=== PATIENT | female | born 1965 | race Caucasian/White ===

== ENCOUNTER 2017-03-14 09:08 | Day surgery (SDC) | payer BC ==
--- NOTE | 2017-03-14 08:13 | HP ---
DATE OF SURGERY: 03/14/2017 HISTORY OF PRESENT ILLNESS: This is a 52 year-old female with no change in bowel movements. Family history negative for colon cancer. She is in need of screening colonoscopy. PAST MEDICAL HISTORY: Hypertension, hypercholesterolemia. PAST SURGICAL HISTORY: Tonsillectomy. MEDICATIONS: Bystolic, lisinopril, hydrochlorothiazide, rosuvastatin, calcium, omeprazole. ALLERGIES: NKDA. FAMILY HISTORY: Diabetes, heart disease. SOCIAL HISTORY: One pack per day smoker, denies alcohol abuse. REVIEW OF SYSTEMS: Twelve systems reviewed per admission assessment. No chest pain or palpitations other systems negative or noncontributory as above and per preadmission questionnaire. PHYSICAL EXAMINATION: GENERAL: No acute distress. HEENT: Sclerae nonicteric. NECK: No JVD. CHEST: Equal excursion, nonlabored breathing. CVS: Regular rate and rhythm. ABDOMEN: Soft. No peritoneal signs. EXTREMITIES: No significant edema. NEURO: Alert, oriented, moving extremities symmetrically. No gross motor deficits noted. RECTAL: Deferred timed to endoscopy exam. IMPRESSION: Need for screening colonoscopy. I feel the patient is a candidate. Risks and benefits explained in detail including but not limited to bleeding or infection, risk of bowel injury or perforation possibly requiring open procedure, ongoing morbidity, small risk of missed or nondiagnosis or incomplete exam possibly requiring barium enema, other studies or procedures, general risk of anesthesia or sedation, risk of bowel prep, postoperative risk of nausea or cramping but not limited to. She understands and agrees to the planned procedure and will proceed with outpatient screening colonoscopy.
[2017-03-14] MEDS ORDERED: DIPRIVAN 200 MG/20 ML IV ONE (09:09)
[2017-03-14] MEDS ORDERED: Versed 2 MG/2 ML Injection IV ONE (09:09)
[2017-03-14] MEDS ORDERED: Lactated Ringers 1,000 ML IV ONE (09:21)
[2017-03-14] MEDS ORDERED: Lactated Ringers 1,000 ML IV SCH (09:30)
[2017-03-14 15:41] VITALS: O2SAT 96
[2017-03-14 15:44] VITALS: BP 125/77; PULSE 60
--- NOTE | 2017-03-15 09:46 | OP ---
SURGERY DATE/TIME: 03/14/2017 1207 PREOPERATIVE DIAGNOSIS: Need for screening colonoscopy. POSTOPERATIVE DIAGNOSES: 1) Somewhat poor right colon bowel prep. 2) Pancolonic diverticulosis. 3) Small internal and external hemorrhoids. 4) Small vague raised lesion versus plastic lesion rectosigmoid colon. PROCEDURES: Colonoscopy to cecum with hot biopsy of sigmoid/rectosigmoid small raised lesion versus hyperplastic lesion. SURGEON: Dr. Ghassan Stoll. ANESTHESIA: MAC. ESTIMATED BLOOD LOSS: Minimal. INDICATIONS: As noted above. Risks and benefits explained in detail but not limited to and consent obtained. DESCRIPTION OF PROCEDURE AND FINDINGS: The patient is taken to the operating room. MAC anesthesia introduced. After official time out and no disagreement with planned procedure, digital rectal exam did not reveal any rectal masses. She did have some small internal and external hemorrhoids. Video colonoscope inserted and passed up the tortuous sigmoid, descending and transverse colon. With external pressure the scope was able to be passed around the ascending colon to cecum, appendiceal orifice as well as visualize slightly distal part of the terminal ileum that was grossly unremarkable. The scope slowly and carefully withdrawn. Again, the prep did limit the exam for small lesions. It was suction irrigated as well as possible but liquidy semi-solid stool did limit the exam for small lesions. It should be noted there was some diverticulosis even in the cecum and throughout the colon. The scope was slowly and carefully withdrawn. There were no signs of any large polyps, masses or obstructing lesions. There was small raised lesion versus hyperplastic lesion in the sigmoid-rectosigmoid area that was removed with hot biopsy forceps. Whether just simple hyperplasia of the mucosa versus hyperplastic polyp was removed with hot biopsy forceps. Good hemostasis was noted. Otherwise she had some small internal and external hemorrhoids. There were no signs of any large polyps, masses or any other obstructing lesion. The scope is withdrawn. The patient tolerated the procedure well. Findings discussed with the family out in the waiting area.
== END 2017-03-14 13:40 | disposition home or self-care (01) ==
LOC: SDC 09:08
PROVIDERS: ATTEND Surgery
PROC: 0DBN8ZX Excision of Sigmoid Colon, Via Natural or Artificial Opening Endoscopic, Diagnostic (ICD-10-PCS; principal; 2017-03-14)
DX: Z12.11 Encounter for screening for malignant neoplasm of colon (principal); K57.90 Diverticulosis of intestine, part unspecified, without perforation or abscess without bleeding; K64.4 Residual hemorrhoidal skin tags; K64.8 Other hemorrhoids
CPT/HCPCS: 00810; J2250; J2704